=== PATIENT | female | born 1985 | race Caucasian/White ===

== ENCOUNTER 2020-06-21 22:26 | Emergency (ER) | payer OTHER, SELFPAY ==
[2020-06-21 22:30] VITALS: BP 120/53; PULSE 139; RESP 24; O2SAT 100
--- NOTE | 2020-06-21 22:30 | ECG_ITS ---
Measurements Intervals [place] Rate: 148 P: 44 KS: 141 QRS: -7 QRSD: 89 T: 52 QT: 320 QTc: 504 Interpretive Statements SINUS TACHYCARDIA, POSSIBLE ATRIAL FLUTTER INCOMPLETE RIGHT BUNDLE BRANCH BLOCK LOW QRS VOLTAGE IN PRECORDIAL LEADS BASELINE ARTIFACT- I, II, III, AVR, AVL, AVF, V1-V2 ABNORMAL ECG Electronically Signed On 06-22-2020 7:18:19 REPROGRAPHICS ASSOCIATE by Charly Vega D.O.
--- NOTE | 2020-06-21 22:30 | ED.ARRPALP ---
HPI - Arrhythmia/Palpitations General Chief Complaint: Arrhythmia/Palpitations Stated Complaint: Amb Time Seen by Provider: 06/21/20 22:30 Source: patient, EMS and RN notes reviewed Mode of arrival: EMS Limitations: no limitations History of Present Illness HPI narrative: patient states that she had a edible marijuana laced cookie. After that she began having heart racing. She finally called an ambulance after couple of hours. She tried vagal maneuvers at home. EMS gave 6 and 12 mg of adenosine but it was in a peripheral vein in the left arm. MD complaint: heart racing Onset (ago): hour(s) (2) Duration: constant Severity: severe Context: occurred during rest Arrhythmia history: SVT Associated symptoms: chest pain (mild) Treatments prior to arrival: vagal maneuvers and adenosine (6 and 12) Related Data Home Medications Medication Instructions Recorded Confirmed cyclobenzaprine 5 mg PO PRN PRN 06/21/20 06/21/20 Allergies Allergy/AdvReac Type Severity Reaction Status Date / Time ciprofloxacin [From Cipro] Allergy Hives Verified 06/21/20 23:21 Penicillins Allergy Hives Verified 06/21/20 23:21 Sulfa (Sulfonamide Allergy Hives Verified 06/21/20 23:21 Antibiotics) Review of Systems Review of Systems: All systems reviewed & are unremarkable except as noted in HPI and below Cardiovascular: Cardiovascular: Reports as per HPI Respiratory: Respiratory: Reports no additional respiratory complaints Gastrointestinal: Gastrointestinal: Reports no additional gastrointestinal complaints, Denies nausea and Denies vomiting Genitourinary: Genitourinary: Reports no additional female genitourinary complaints Musculoskeletal: Musculoskeletal: Reports no additional musculoskeletal complaints Neurologic: Reports system reviewed and no additional complaints, except as documented PMFSH Past Medical History Medical History (Updated 06/22/20 @ 01:28 by Yeyo Tijerina MD) Fibromyalgia Hypothyroidism Obesity PCOS (polycystic ovarian syndrome) Surgical History Surgical History (Updated 06/22/20 @ 00:30 by Yeyo Tijerina MD) H/O shoulder surgery History of appendectomy Ovarian cyst Social History Social History (Updated 06/22/20 @ 00:30 by Yeyo Tijerina MD) Smoking status: Never smoker Alcohol intake: current Substance use type: marijuana Exam Const: General: healthy appearing and no acute distress Nutritional Appearance: well nourished and obese centrally obese Orientation/consciousness: patient oriented x3 HENMT: Head: normal to inspection Ears: external ears normal General nose exam: Normal external nose present Face and sinus: normal facial exam and dry mucous membranes Mouth: Yes lip normal Eyes: Conjunctivae: conjunctivae normal Pupils: Equal, round and reactive pupils present EOM: EOMs intact bilaterally Neck: Neck: normal visual inspection Resp: Effort & Inspection: normal respiratory effort Auscultation: clear to auscultation bilaterally Cardio: Rate: tachycardic Rhythm: regular rhythm GI: GI Palp: Yes Soft to palpation and No Tenderness to palpation present (GI) Auscultation: normal bowel sounds Back/Spine/Pelvis: Cervical Spine: cervical ROM normal Thoracic/Lumbar Spine: thoraco-lumbar ROM normal Skin: General skin exam: normal color Rashes: no rashes Neuro: General: patient oriented x3, moves all extremities and no focal motor deficits Speech: normal speech Extrem: General: normal to inspection and no clubbing, cyanosis or edema Psych: Appearance: grossly normal and well kempt Mental Status: mental status grossly normal Affect: normal affect Attitude: cooperative Thought content: Yes Normal thought content present Course Course Emergency Course: initial rhythm on the monitor shows sinus tachycardia in the 150s. I gave 30 mg of Cardizem IV push which had no effect. And then tried the adenosine 12 mg rapid IV push with the 3 way stopcock. This dropped her he
[2020-06-21 22:35] VITALS: PULSE 140
[2020-06-21] MEDS: dilTIAZem HCl INJ 25 MG/5 ML VIAL 30 MG IV PUSH (22:35)
[2020-06-21] MEDS: ADENOSINE IV SOLN 6 MG/2 ML VIAL 12 MG IV PUSH (22:50)
[2020-06-21 22:57] VITALS: PULSE 131
[2020-06-21] MEDS: METOPROLOL TARTRATE INJ 5 MG/5 ML VIAL IV PUSH (22:57)
[2020-06-21 23:09] LABS: Basophils Absolute Auto 0.09 K/mm3 (0.00-0.10); Basophils Percent Auto 0.6 % (0.0-1.0); Eosinophils Absolute Auto 0.21 K/mm3 (0.02-0.50); Eosinophils Percent Auto 1.4 % (1.0-6.0); Hematocrit 40.4 % (35.0-49.0); Hemoglobin 13.4 g/dL (12.0-15.0); Immature Granulocyte Absolute 0.08 K/mm3 (0.00-0.00); Immature Granulocyte Percent A 0.6 % (0.0-0.0); Lymphocytes Absolute Auto 3.51 K/mm3 (1.10-4.50); Lymphocytes Percent Auto 24.2 % (18.0-42.0); Mean Corpuscular HGB Conc 33.2 g/dL (32.0-36.0); Mean Corpuscular Hemoglobin 31.1 pg (27.0-31.0); Mean Corpuscular Volume 93.7 fL (78.0-102.0); Mean Platelet Volume 11.2 fl (9.2-11.8); Monocytes Absolute Auto 0.93 K/mm3 (0.10-0.90); Monocytes Percent Auto 6.4 % (2.0-11.0); Neutrophils Absolute Auto 9.7 K/mm3 (1.7-7.2); Neutrophils Percent Auto 66.8 % (50.0-70.0); Platelet Count Result 306 K/mm3 (150-420); Red Blood Count 4.31 M/mm3 (4.20-5.40); Red Cell Distribution Width 12.9 % (11.6-14.4); White Blood Count 14.5 K/mm3 (4.8-10.8)
[2020-06-21 23:52] LABS: Alanine Aminotransferase 58 U/L (14-59); Albumin Level 3.9 g/dL (3.4-5.0); Alkaline Phosphatase 101 U/L (46-116); Anion Gap 16 mmol/L (8-16); Aspartate Amino Transferase 31 U/L (15-37); Bilirubin,Total 0.3 mg/dL (0.00-1.00); Blood Urea Nitrogen 8 mg/dL (7-18); Calcium 8.8 mg/dL (8.5-10.1); Carbon Dioxide 21 mmol/L (21-32); Chloride 100 mmol/L (98-108); Estimated Glomerular Filt Rate 60; Glucose 118 mg/dL (70-99); Magnesium 1.9 mg/dL (1.8-2.4); Osmolality Calculated 283 mOsm/kg (285-295); Potassium 3.2 mmol/L (3.5-5.1); Sodium 137 mmol/L (136-145); Thyroid Stimulating Hormone 33.34 uIU/mL (0.36-3.74); Total Protein 8.4 g/dL (6.4-8.2)
[2020-06-21 23:53] LABS: Troponin I < 0.02 ng/mL (0.00-0.056)
[2020-06-21 23:58] LABS: Amphetamine Screen Urine Negative (Negative); Barbiturate Screen Urine Negative (Negative); Benzodiazepines Screen Urine Negative (Negative); Cannabinoid Screen Urine Positive (Negative); Cocaine Screen Urine Negative (Negative); Methadone Screen Urine Negative (Negative); Opiate Screen Urine Positive (Negative); Phencyclidine Screen Urine Negative (Negative)
--- NOTE | 2020-06-21 23:58 | PC.NURSE ---
pt up to commode without difficulty, small amount of urine collected. dark yellow, clear. states has had 2 cups coffee, 3 glasses of water and 2 dr pepper sodas throughout the day.
[2020-06-22] VITALS: BP 124/67; PULSE 111; RESP 18; O2SAT 98
[2020-06-22] MEDS: SODIUM CHLORIDE 0.9% IV 1,000 ML 999 ML IV CONT (00:19)
[2020-06-22 01:22] VITALS: BP 107/64; PULSE 108; RESP 20; O2SAT 98
[2020-06-22] MEDS: POTASSIUM BICARBONATE 25 MEQ TABEF 50 MEQ PO (01:39)
[2020-06-22 01:41] VITALS: BP 122/64; PULSE 108; RESP 18; TEMP 36.9; O2SAT 98
== END 2020-06-22 01:49 | disposition home or self-care (01) ==
PROVIDERS: Emergency Provider Emergency Medicine; PCP Internal Medicine
DX: R00.0 Tachycardia, unspecified (principal); E87.6 Hypokalemia
CPT/HCPCS: 36415; 80053; 80307; 83735; 84443; 84484; 85025; 85610; 93005; 96361; 96374; 96375; 99283; 99284; A9270; J0153; J7030

== ENCOUNTER 2020-07-08 16:09 | Outpatient (CLI) | payer OTHER, SELFPAY ==
[2020-07-08 18:02] LABS: SARS-CoV-2 Ag Negative (Negative)
== END 2020-07-08 16:10 | disposition home or self-care (01) ==
PROVIDERS: PCP Internal Medicine; Visit Provider Internal Medicine
DX: Z20.828 Contact with and (suspected) exposure to other viral communicable diseases (principal)
CPT/HCPCS: 87426

== ENCOUNTER 2021-07-25 09:37 | Outpatient (CLI) | payer OTHER, SELFPAY ==
[2021-07-25 10:50] LABS: Influenza A QL RT-PCR Positive (Negative); Influenza B QL RT-PCR Negative (Negative); SARS-CoV-2 RNA PCR Negative (Negative)
== END 2021-07-25 09:38 | disposition home or self-care (01) ==
LOC: CHSLAB 09:40
PROVIDERS: PCP Internal Medicine; Visit Provider Internal Medicine
DX: Z20.822 Contact with and (suspected) exposure to COVID-19 (principal)
CPT/HCPCS: 87502; C9803; U0003; U0005

== ENCOUNTER 2023-07-31 16:29 | Emergency (ER) | payer OTHER, SELFPAY ==
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
[2023-07-31 16:34] VITALS: BP 143/94; PULSE 67; RESP 17; TEMP 37; O2SAT 98
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
[2023-07-31] MEDS: KETOROLAC (*BKC) 60 MG/2 ML VIAL IM (18:55)
[2023-07-31 19:24] VITALS: BP 135/89; PULSE 85; RESP 20; O2SAT 98
== END 2023-07-31 19:27 | disposition home or self-care (01) ==
PROVIDERS: Emergency Provider Emergency Medicine; PCP Internal Medicine
DX: S16.1XXA Strain of muscle, fascia and tendon at neck level, initial encounter (principal); S46.912A Strain of unspecified muscle, fascia and tendon at shoulder and upper arm level, left arm, initial encounter; E03.9 Hypothyroidism, unspecified; Z79.899 Other long term (current) drug therapy; V43.52XA Car driver injured in collision with other type car in traffic accident, initial encounter; Y92.410 Unspecified street and highway as the place of occurrence of the external cause
CPT/HCPCS: 70450; 71101; 72125; 73030; 96372; 99284; A4565; J1885